=== PATIENT | male | born 1960 | race Caucasian/White ===

== ENCOUNTER → 2019-03-14 | Outpatient (CLI) | payer OTHER ==
--- NOTE | 2019-03-14 09:54 | Diagnostic Imaging Report ---
TECHNIQUE: Magnetic resonance imaging of the left hindfoot was performed WITHOUT injected contrast. COMPARISON: None available. HISTORY: Pain, evaluate for peroneal tendon pathology FINDINGS: LIGAMENTS: Medial Complex: Deltoid intact. Lateral Complex: Tibiofibular, talofibular, and calcaneofibular ligaments intact. TENDONS: Medial: Posterior tibial and flexor tendons intact. Cornuate navicular. Lateral: Mild peroneal tenosynovitis. Accessory peroneal quartus. Anterior: Anterior tibial and extensor tendons intact. Achilles: Achilles tendon intact. BONES: No focal or infiltrative bone marrow replacing abnormality. No acute fracture or osteonecrosis. JOINTS: Cartilage: Small osteochondral lesion of the lateral talar dome best seen on coronal image 22. Other: Fluid within the joints is within physiologic limits. SOFT TISSUES: Thickening and attenuation of the central plantar fascia with mild edema. IMPRESSION: Chronic plantar fasciitis. Mild peroneal tenosynovitis with accessory peroneal quartus. Small osteochondral lesion of the lateral talar dome. Signed by: Dr. Artemio Oakes M.D. on 03/14/2019 9:51 AM
== END ==
LOC: MRI 08:40
PROVIDERS: ATTEND Podiatrist Foot & Ankle Surgery
DX: M76.72 Peroneal tendinitis, left leg (principal)